=== PATIENT | female | born 1950 | race Caucasian/White ===

== ENCOUNTER 2023-05-26 23:12 | Emergency (ER) | payer MEDICARE, MEDICAID ==
[~2023-05-26] VITALS: Ht 162.6 cm; Wt 96.4 kg
[~2023-05-26 23:12] MED LIST: ACET-1008 PO; CARV25TA PO; DEXT15SY; DILT240C90 PO; DOCU-148 PO; FURO40TA4 PO; GUAI600T45 PO; HYDR-3973 PO; IPRA3AMP31 IH; LORA10TA7 PO; ONDA4TAB12 PO; SENN-263 PO; SPIR25TA5 PO; SULF1TAB45 PO; VENL37.55 PO; WARF3TAB56 PO
[2023-05-26 23:47] LABS: BASOPHILS # (AUTO) 0.1 X10'3 (0-0.2); EOSINOPHILS # (AUTO) 0.4 X10'3 (0-0.9); EOSINOPHILS % (AUTO) 7.2 % (0-6); HEMOGLOBIN 10.4 g/dl (12.0-16.0); LYMPHOCYTES # (AUTO) 0.8 X10'3 (1.1-4.8); LYMPHOCYTES % (AUTO) 14.3 % (21-51); MEAN CORPUSCULAR HEMOGLOBIN 28.9 PG (27.0-31.0); MEAN CORPUSCULAR HGB CONC 31.5 g/dL (33.0-36.5); MEAN CORPUSCULAR VOLUME 91.7 FL (78-98); MEAN PLATELET VOLUME 7.8 FL (7.4-10.4); MONOCYTES # (AUTO) 0.7 X10'3 (0-0.9); MONOCYTES % (AUTO) 12.1 % (2-12); NEUTROPHILS # (AUTO) 3.9 X10'3 (1.8-7.7); NEUTROPHILS % (AUTO) 65.4 % (42-75); PLATELET COUNT 135 X10'3 (140-440); WHITE BLOOD COUNT 5.9 X10'3 (4.5-11.0)
[2023-05-26 23:55] LABS: D-DIMER 1.88 MG/L FEU (0-0.50)
[2023-05-26 23:58] LABS: ALANINE AMINOTRANSFERASE 14 U/L (12-78); ALBUMIN/GLOBULIN RATIO 0.9 (1.1-1.5); ALKALINE PHOSPHATASE 69 IU/L (46-116); ANION GAP 5 (8-16); ASPARTATE AMINO TRANSFERASE 10 U/L (10-37); BILIRUBIN,TOTAL 0.5 MG/DL (0.1-1.0); BLOOD UREA NITROGEN 40 MG/DL (7-18); BUN/CREATININE RATIO 24.7 (10.0-20.0); CALCIUM 8.9 MG/DL (8.5-10.1); CHLORIDE 102 MMOL/L (99-107); CREATININE 1.62 MG/DL (0.40-0.90); GLUCOSE 92 MG/DL (70-104); POTASSIUM 4.2 MMOL/L (3.5-5.1); SODIUM 139 MMOL/L (135-145); TOTAL CARBON DIOXIDE 31.7 MMOL/L (24-32); TOTAL PROTEIN 6.5 G/DL (6.4-8.2); eCRCL 26 ML/MIN; eGFR 31 ML/MIN
[2023-05-27 00:06] LABS: ANISOCYTOSIS 1+; PLATELET ESTIMATE NORMAL
[2023-05-27 00:07] LABS: ELLIPTOCYTES FEW; PRO BRAIN NATRIURETIC PEPTIDE 1066 PG/ML (0-125); SCHISTOCYTES FEW; TEAR DROP CELLS FEW
[2023-05-27] MEDS ORDERED: benzonatate 100mg capsule PO ONE (00:25)
[2023-05-27] MEDS ORDERED: triamcinolone acet 0.1% cream 15gm TP ONE (00:25)
[2023-05-27] MEDS ORDERED: acetaminophen 325mg tablet PO ONE (00:25)
[2023-05-27] MEDS ORDERED: normal saline 1000ML IV soln IVB ONE (00:30)
[2023-05-27 01:04] LABS: BILIRUBIN,URINE NEGATIVE (Neg); CLARITY,URINE SLIGHTLY CLOUDY (Clear); COLOR,URINE YELLOW (Yellow); GLUCOSE, URINE NEGATIVE (Neg); KETONES,URINE NEGATIVE (Neg); LEUKOCYTE ESTERASE ,URINE SMALL (Neg); NITRITES, URINE NEGATIVE (Neg); OCCULT BLOOD,URINE NEGATIVE (Neg); PROTEIN,URINE NEGATIVE (Neg); UROBILINOGEN,URINE 0.2 E.U/dL (0.2-1.0)
[2023-05-27 01:10] LABS: UA COLLECTION TYPE STRAIGHT CATH
[2023-05-27 01:11] LABS: SQUAMOUS EPITHELIAL CELL,UR FEW /LPF (FEW)
[2023-05-27 01:12] LABS: BACTERIA,URINE 4+ /HPF (Neg); WBC CLUMPS,URINE MODERATE /HPF (NEGATIVE); WBC,URINE 50-100 /HPF (0-4)
[2023-05-27] MEDS ORDERED: CEPH250T PO (01:57)
[2023-05-27] MEDS ORDERED: CefTRIAXone/D5W-Rocephin 1gm 50 ML IV ONE (02:00)
[2023-05-27] MEDS ORDERED: traMADol 50MG tablet PO ONE (02:30)
[2023-05-27 03:32] VITALS: BP 114/59; PULSE 96; RESP 18; TEMP 98; O2SAT 96
== END 2023-05-27 03:15 | disposition home or self-care (01) ==
LOC: ER 23:12
DX: N39.0 Urinary tract infection, site not specified (principal); I11.0 Hypertensive heart disease with heart failure; J44.9 Chronic obstructive pulmonary disease, unspecified; Z88.8 Allergy status to other drugs, medicaments and biological substances; Z79.899 Other long term (current) drug therapy
CPT/HCPCS: 36415; 71045; 80053; 81001; 83880; 84145; 84484; 85008; 85025; 85379; 87077; 87088; 87186; 93005; 96374; 99285; J0696; J7030; A4353

== ENCOUNTER 2023-07-19 10:56 | Inpatient (IN) | payer MEDICARE, MEDICAID ==
[~2023-07-19] VITALS: Ht 162.6 cm; Wt 137.3 kg
[~2023-07-19 10:56] MED LIST changes: -VENL37.55 PO; +VENL37.58 PO
[2023-07-19] MEDS ORDERED: pantoprazole 40mg IV 80 MG in normal saline 100ml IV soln 100 ML IV ONE (11:15)
[2023-07-19 11:37] LABS: BASOPHILS % (AUTO) 0.3 % (0-1); EOSINOPHILS # (AUTO) 0.2 X10'3 (0-0.9); EOSINOPHILS % (AUTO) 2.2 % (0-6); HEMATOCRIT 30.4 % (35.0-45.0); HEMOGLOBIN 9.4 g/dl (12.0-16.0); LYMPHOCYTES # (AUTO) 0.5 X10'3 (1.1-4.8); LYMPHOCYTES % (AUTO) 6.1 % (21-51); MEAN CORPUSCULAR HEMOGLOBIN 28.2 PG (27.0-31.0); MEAN CORPUSCULAR HGB CONC 30.9 g/dL (33.0-36.5); MEAN CORPUSCULAR VOLUME 91.5 FL (78-98); MEAN PLATELET VOLUME 7.4 FL (7.4-10.4); MONOCYTES % (AUTO) 13.3 % (2-12); NEUTROPHILS % (AUTO) 78.1 % (42-75); PLATELET COUNT 177 X10'3 (140-440); RED BLOOD COUNT 3.33 X10'6 (4.20-5.60); RED CELL DISTRIBUTION WIDTH 16.3 % (11.5-14.5); WHITE BLOOD COUNT 7.6 X10'3 (4.5-11.0)
[2023-07-19 11:50] LABS: APTT 36 SECONDS (22-32); INR 1.3 INR; PROTHROMBIN TIME 13.4 SECONDS (9.0-12.0)
[2023-07-19 11:56] LABS: ALBUMIN 2.9 G/DL (3.4-5.0); ANION GAP 4 (8-16); BLOOD UREA NITROGEN 55 MG/DL (7-18); BUN/CREATININE RATIO 28.5 (10.0-20.0); CALCIUM 9.5 MG/DL (8.5-10.1); CHLORIDE 103 MMOL/L (99-107); CREATININE 1.93 MG/DL (0.40-0.90); GLUCOSE 106 MG/DL (70-104); LIPASE 10 U/L (16-77); MAGNESIUM 2.8 MG/DL (1.5-2.4); SODIUM 141 MMOL/L (135-145); TOTAL CARBON DIOXIDE 34.5 MMOL/L (24-32); eCRCL 22 ML/MIN; eGFR 25 ML/MIN
[2023-07-19] MEDS: pantoprazole 40 MG vial IV ONE (11:58)
[2023-07-19 12:02] LABS: POTASSIUM 6.1 MMOL/L (3.5-5.1)
[2023-07-19] MEDS ORDERED: ondansetron/PF 4mg/2ml inj IV PRN (13:55)
[2023-07-19] MEDS ORDERED: potassium Cl 40MEQ/1/2NS 520ml 520 ML IV PRN (13:55)
[2023-07-19] MEDS ORDERED: magnesium 2GM in 50ml NS 50 ML IV PRN (13:55)
[2023-07-19] MEDS ORDERED: potassium Cl 20 mEq SR tablet PO PRN ×2 (13:55)
[2023-07-19] MEDS ORDERED: magnesium 4gm in 100ml NS 100 ML IV PRN (13:55)
[2023-07-19] MEDS ORDERED: mag hydrox/Alum hydrox/simeth 30ml oral suspension PO PRN (13:55)
[2023-07-19 13:58] LABS: OCCULT BLOOD STOOL POSITIVE (Neg)
[2023-07-19] MEDS: SODIUM ZIRCONIUM CYCLOSILICATE 10 GM POWD.PACK PO SCH (14:06)
[2023-07-19] MEDS: normal saline 1000ml 1,000 ML IV SCH (14:33)
[2023-07-19 14:36] LABS: BILIRUBIN,URINE NEGATIVE (Neg); CLARITY,URINE CLOUDY (Clear); COLOR,URINE YELLOW (Yellow); GLUCOSE, URINE NEGATIVE (Neg); KETONES,URINE NEGATIVE (Neg); LEUKOCYTE ESTERASE ,URINE MODERATE (Neg); NITRITES, URINE NEGATIVE (Neg); OCCULT BLOOD,URINE LARGE (Neg); PROTEIN,URINE NEGATIVE (Neg); UROBILINOGEN,URINE 0.2 E.U/dL (0.2-1.0)
[2023-07-19 14:44] LABS: UA COLLECTION TYPE NON-SPECIFIED
[2023-07-19 14:45] LABS: SQUAMOUS EPITHELIAL CELL,UR FEW /LPF (FEW)
[2023-07-19 14:47] LABS: BACTERIA,URINE FEW /HPF (Neg); RBC,URINE 0-2 /HPF (0-2)
[2023-07-19] MEDS ORDERED: VENL75TA4 PO (15:29)
[2023-07-19] MEDS: pantoprazole 40MG/NS 100ML BAG 100 ML IV SCH (16:00)
[2023-07-19] MEDS: HYDROcodone/acetaminophen 10/325mg tab PO PRN (16:21)
[2023-07-19 17:00] VITALS: BP 110/46; PULSE 112; RESP 17; TEMP 98.2; O2SAT 94
[2023-07-19 17:04] LABS: HEMATOCRIT 29.6 % (35.0-45.0); HEMOGLOBIN 9.2 g/dl (12.0-16.0); MEAN CORPUSCULAR HEMOGLOBIN 28.5 PG (27.0-31.0); MEAN CORPUSCULAR VOLUME 91.9 FL (78-98); MEAN PLATELET VOLUME 7.4 FL (7.4-10.4); PLATELET COUNT 168 X10'3 (140-440); RED BLOOD COUNT 3.22 X10'6 (4.20-5.60); RED CELL DISTRIBUTION WIDTH 16.5 % (11.5-14.5); WHITE BLOOD COUNT 7.2 X10'3 (4.5-11.0)
[2023-07-19 17:08] LABS: ALBUMIN 2.8 G/DL (3.4-5.0); ANION GAP 2 (8-16); BLOOD UREA NITROGEN 52 MG/DL (7-18); BUN/CREATININE RATIO 26.5 (10.0-20.0); CALCIUM 9.3 MG/DL (8.5-10.1); CHLORIDE 105 MMOL/L (99-107); CREATININE 1.96 MG/DL (0.40-0.90); GLUCOSE 98 MG/DL (70-104); SODIUM 141 MMOL/L (135-145); TOTAL CARBON DIOXIDE 34.1 MMOL/L (24-32); eCRCL 22 ML/MIN; eGFR 25 ML/MIN
[2023-07-19 17:14] LABS: POTASSIUM 6.2 MMOL/L (3.5-5.1)
[2023-07-19 18:00] VITALS: BP 116/67; PULSE 122; RESP 22; TEMP 97.6; O2SAT 94
[2023-07-19] MEDS: albuterol 2.5 MG/3 ML nebule CONTNEB PRN (19:21)
[2023-07-19] MEDS: dextrose 50%-water 50ml dispensing syringe IV ONE (19:24)
[2023-07-19] MEDS: calcium chloride 100 MG/1 ML inj IV ONE (19:25)
[2023-07-19 19:26] VITALS: PULSE 82; RESP 18; O2SAT 94
[2023-07-19] MEDS: insulin regular, human 10 units/0.1 ml syringe IV ONE (19:30)
[2023-07-19 20:00] VITALS: RESP 22; O2SAT 92
[2023-07-19] MEDS ORDERED: docusate sod 100mg capsule PO SCH (20:00)
[2023-07-19] MEDS: K and/or MAG REPLACEMENT MC SCH (20:00)
[2023-07-19 20:06] VITALS: PULSE 82; RESP 24
[2023-07-19] MEDS ORDERED: ipratropium/albuterol 3ml nebule IH PRN (20:40)
[2023-07-19] MEDS ORDERED: HYDROcodone/acetaminophen 10/325mg tab PO PRN (20:40)
[2023-07-19 22:00] VITALS: BP 114/62; PULSE 110; RESP 18; TEMP 97.9; O2SAT 97
[2023-07-19] MEDS: morphine 2 MG/ML inj. syringe IV PRN (22:41)
[2023-07-19] MEDS: diphenhydrAMINE 50 mg/ml inj IV PRN (22:43)
[2023-07-20] VITALS (14 sets, daily range): BP systolic 104–122; BP diastolic 51–74; PULSE 75–96; RESP 16–20; TEMP 96.5–98.4; O2SAT 90–99
[2023-07-20 07:11] LABS: BASOPHILS % (AUTO) 0.5 % (0-1); EOSINOPHILS # (AUTO) 0.2 X10'3 (0-0.9); EOSINOPHILS % (AUTO) 4.2 % (0-6); HEMATOCRIT 29.1 % (35.0-45.0); HEMOGLOBIN 8.9 g/dl (12.0-16.0); LYMPHOCYTES # (AUTO) 0.6 X10'3 (1.1-4.8); LYMPHOCYTES % (AUTO) 10.3 % (21-51); MEAN CORPUSCULAR HEMOGLOBIN 28.1 PG (27.0-31.0); MEAN CORPUSCULAR HGB CONC 30.8 g/dL (33.0-36.5); MEAN CORPUSCULAR VOLUME 91.4 FL (78-98); MEAN PLATELET VOLUME 7.3 FL (7.4-10.4); NEUTROPHILS # (AUTO) 3.7 X10'3 (1.8-7.7); PLATELET COUNT 164 X10'3 (140-440); RED BLOOD COUNT 3.18 X10'6 (4.20-5.60); RED CELL DISTRIBUTION WIDTH 16.9 % (11.5-14.5); WHITE BLOOD COUNT 5.5 X10'3 (4.5-11.0)
[2023-07-20 07:51] LABS: ALBUMIN 2.6 G/DL (3.4-5.0); ALBUMIN/GLOBULIN RATIO 0.8 (1.1-1.5); ALKALINE PHOSPHATASE 58 IU/L (46-116); ANION GAP 4 (8-16); ASPARTATE AMINO TRANSFERASE 11 U/L (10-37); BILIRUBIN,TOTAL 0.6 MG/DL (0.1-1.0); BLOOD UREA NITROGEN 49 MG/DL (7-18); BUN/CREATININE RATIO 26.2 (10.0-20.0); CALCIUM 9.3 MG/DL (8.5-10.1); CHLORIDE 105 MMOL/L (99-107); CREATININE 1.87 MG/DL (0.40-0.90); GLUCOSE 84 MG/DL (70-104); MAGNESIUM 2.5 MG/DL (1.5-2.4); PRO BRAIN NATRIURETIC PEPTIDE 2438 PG/ML (0-125); SODIUM 142 MMOL/L (135-145); TOTAL CARBON DIOXIDE 33.5 MMOL/L (24-32); eCRCL 23 ML/MIN; eGFR 26 ML/MIN
[2023-07-20 07:54] LABS: ALANINE AMINOTRANSFERASE 6 U/L (12-78)
[2023-07-20] MEDS: carVEDilol 12.5mg tablet PO SCH (08:00)
[2023-07-20] MEDS: loratadine 10mg tablet PO SCH (08:00)
[2023-07-20] MEDS: furosemide 40mg/4ml inj IV SCH (08:00)
[2023-07-20] MEDS: docusate sod 100mg capsule PO SCH (08:00)
[2023-07-20 08:44] LABS: TOTAL CELLS COUNTED 100
[2023-07-20 08:45] LABS: ANISOCYTOSIS 1+; LARGE PLATELETS FEW; PLATELET ESTIMATE NORMAL
[2023-07-20] MEDS: sennosides 8.6mg tablet PO SCH (09:13)
[2023-07-20] MEDS: diltiazem CD 120mg capsule (once-daily) PO SCH (09:15)
[2023-07-20] MEDS: metoprolol tartrate 1mg/ml inj IV ONE (09:40)
[2023-07-20] MEDS: LORazepam 2 mg/ml vial IV ONE (10:20)
[2023-07-20] MEDS: digoxin 250mcg/ml 2ml ampule IV ONE (11:53)
[2023-07-20] MEDS ORDERED: LIDOcaine Viscous 15ml cup ONE (12:48)
[2023-07-20] MEDS ORDERED: fentaNYL/PF 50MCG/1 ML 2ML syringe ONE (13:58)
[2023-07-20] MEDS ORDERED: MIDAZolam 1 MG/ML 5ML VIAL ONE (13:58)
[2023-07-20] MEDS: SODIUM ZIRCONIUM CYCLOSILICATE 10 GM POWD.PACK PO SCH (16:55)
[2023-07-20] MEDS ORDERED: digoxin 250mcg/ml 2ml ampule IV ONE (19:05)
[2023-07-20] MEDS: pantoprazole 40mg Tablet.DR PO SCH (20:04)
[2023-07-20 22:09] LABS: ALBUMIN 2.6 G/DL (3.4-5.0); ANION GAP 2 (8-16); BLOOD UREA NITROGEN 50 MG/DL (7-18); BUN/CREATININE RATIO 24.5 (10.0-20.0); CALCIUM 8.7 MG/DL (8.5-10.1); CHLORIDE 104 MMOL/L (99-107); CREATININE 2.04 MG/DL (0.40-0.90); GLUCOSE 111 MG/DL (70-104); POTASSIUM 5.1 MMOL/L (3.5-5.1); SODIUM 144 MMOL/L (135-145); eCRCL 21 ML/MIN; eGFR 24 ML/MIN
[2023-07-21] VITALS (15 sets, daily range): BP systolic 95–154; BP diastolic 45–83; PULSE 71–99; RESP 13–24; TEMP 96.7–98.6; O2SAT 92–99
[2023-07-21 08:09] LABS: BASOPHILS % (AUTO) 0.7 % (0-1); EOSINOPHILS # (AUTO) 0.3 X10'3 (0-0.9); EOSINOPHILS % (AUTO) 5.4 % (0-6); HEMOGLOBIN 8.9 g/dl (12.0-16.0); LYMPHOCYTES # (AUTO) 0.5 X10'3 (1.1-4.8); LYMPHOCYTES % (AUTO) 10.1 % (21-51); MEAN CORPUSCULAR HEMOGLOBIN 29.2 PG (27.0-31.0); MEAN CORPUSCULAR HGB CONC 31.8 g/dL (33.0-36.5); MEAN CORPUSCULAR VOLUME 91.9 FL (78-98); MEAN PLATELET VOLUME 7.4 FL (7.4-10.4); MONOCYTES # (AUTO) 0.9 X10'3 (0-0.9); MONOCYTES % (AUTO) 18.1 % (2-12); NEUTROPHILS # (AUTO) 3.4 X10'3 (1.8-7.7); NEUTROPHILS % (AUTO) 65.7 % (42-75); PLATELET COUNT 161 X10'3 (140-440); RED BLOOD COUNT 3.05 X10'6 (4.20-5.60); RED CELL DISTRIBUTION WIDTH 16.7 % (11.5-14.5); WHITE BLOOD COUNT 5.1 X10'3 (4.5-11.0)
[2023-07-21 08:20] LABS: ALBUMIN 2.6 G/DL (3.4-5.0); ALBUMIN/GLOBULIN RATIO 0.7 (1.1-1.5); ALKALINE PHOSPHATASE 64 IU/L (46-116); ANION GAP 2 (8-16); ASPARTATE AMINO TRANSFERASE 18 U/L (10-37); BILIRUBIN,TOTAL 0.5 MG/DL (0.1-1.0); BLOOD UREA NITROGEN 48 MG/DL (7-18); BUN/CREATININE RATIO 24.2 (10.0-20.0); CALCIUM 8.9 MG/DL (8.5-10.1); CHLORIDE 105 MMOL/L (99-107); CREATININE 1.98 MG/DL (0.40-0.90); GLUCOSE 89 MG/DL (70-104); MAGNESIUM 2.5 MG/DL (1.5-2.4); POTASSIUM 5.1 MMOL/L (3.5-5.1); SODIUM 143 MMOL/L (135-145); TOTAL CARBON DIOXIDE 36.1 MMOL/L (24-32); TOTAL PROTEIN 6.1 G/DL (6.4-8.2); eCRCL 22 ML/MIN; eGFR 25 ML/MIN
[2023-07-21 08:29] LABS: ALANINE AMINOTRANSFERASE < 6 U/L (12-78)
[2023-07-21] MEDS: CefTRIAXone/D5W-Rocephin 1gm 50 ML IV ONE (13:38)
[2023-07-21 17:13] LABS: ABG BASE EXCESS 8.6 mmol/L (-2.0-2.0); ABG HCO3 36.7 mmol/L (22.0-26.0); ABG OXYGEN SATURATION 94.8 % (94-97); ABG PCO2 (T) 71.2 mmHg (32.0-45.0); ABG PH (T) 7.328 (7.350-7.450); ABG PO2 (T) 73.4 mmHg (75.0-100.0); ALLEN'S TEST POSITIVE; FCOHb 0.6 % (0.0-3.9); FHHb 5.2 % (0.0-5.0); FMetHb 0.3 % (0.0-1.5); FO2Hb 93.9 % (94-97); MODE NASAL CANNULA; PATIENT TEMPERATURE 36.4; TOTAL HEMOGLOBIN 10.4 G/dl (12.0-16.0)
[2023-07-21 18:15] LABS: TOTAL PROTEIN,URINE RANDOM 6.3 MG/DL
[2023-07-21] MEDS: LORazepam 0.5 MG tablet PO PRN (22:55)
[2023-07-21] MEDS: diatr meglu/diatrizoate 30ml oral sol.-(3 dose) bottle PO SCH (22:58)
[2023-07-22] VITALS (11 sets, daily range): BP systolic 94–124; BP diastolic 50–73; PULSE 73–98; RESP 16–24; TEMP 97.7–97.9; O2SAT 91–98
[2023-07-22] MEDS ORDERED: diatrozoate meglu/diatrozoate sod (37% iodine) 120ML oral solution PO ONE ×2 (07:00→10:00)
[2023-07-22] MEDS: CefTRIAXone/D5W-Rocephin 1gm 50 ML IV SCH (07:31)
[2023-07-22 07:52] LABS: BASOPHILS % (AUTO) 0.6 % (0-1); EOSINOPHILS # (AUTO) 0.3 X10'3 (0-0.9); EOSINOPHILS % (AUTO) 5.7 % (0-6); HEMATOCRIT 28.8 % (35.0-45.0); HEMOGLOBIN 8.8 g/dl (12.0-16.0); LYMPHOCYTES # (AUTO) 0.6 X10'3 (1.1-4.8); LYMPHOCYTES % (AUTO) 10.3 % (21-51); MEAN CORPUSCULAR HEMOGLOBIN 28.1 PG (27.0-31.0); MEAN CORPUSCULAR HGB CONC 30.7 g/dL (33.0-36.5); MEAN CORPUSCULAR VOLUME 91.5 FL (78-98); MEAN PLATELET VOLUME 7.2 FL (7.4-10.4); MONOCYTES # (AUTO) 1.1 X10'3 (0-0.9); MONOCYTES % (AUTO) 19.7 % (2-12); NEUTROPHILS # (AUTO) 3.5 X10'3 (1.8-7.7); NEUTROPHILS % (AUTO) 63.7 % (42-75); PLATELET COUNT 167 X10'3 (140-440); RED BLOOD COUNT 3.14 X10'6 (4.20-5.60); RED CELL DISTRIBUTION WIDTH 16.4 % (11.5-14.5); WHITE BLOOD COUNT 5.5 X10'3 (4.5-11.0)
[2023-07-22] MEDS: furosemide 20 MG/2 ML vial IV SCH (08:00)
[2023-07-22 08:23] LABS: ALANINE AMINOTRANSFERASE 6 U/L (12-78); ALBUMIN 2.7 G/DL (3.4-5.0); ALBUMIN/GLOBULIN RATIO 0.7 (1.1-1.5); ALKALINE PHOSPHATASE 64 IU/L (46-116); ANION GAP 2 (8-16); ASPARTATE AMINO TRANSFERASE 7 U/L (10-37); BILIRUBIN,TOTAL 0.5 MG/DL (0.1-1.0); BLOOD UREA NITROGEN 48 MG/DL (7-18); BUN/CREATININE RATIO 25.4 (10.0-20.0); CALCIUM 8.7 MG/DL (8.5-10.1); CHLORIDE 102 MMOL/L (99-107); CREATININE 1.89 MG/DL (0.40-0.90); GLUCOSE 99 MG/DL (70-104); MAGNESIUM 2.5 MG/DL (1.5-2.4); POTASSIUM 4.4 MMOL/L (3.5-5.1); SODIUM 140 MMOL/L (135-145); TOTAL PROTEIN 6.4 G/DL (6.4-8.2); eCRCL 23 ML/MIN; eGFR 26 ML/MIN
[2023-07-22] MEDS: furosemide 40mg/4ml inj IV SCH (16:00)
[2023-07-22 16:51] LABS: ABG HCO3 39.7 mmol/L (22.0-26.0); ABG OXYGEN SATURATION 93.9 % (94-97); ABG PH (T) 7.321 (7.350-7.450); ABG PO2 (T) 67.1 mmHg (75.0-100.0); ALLEN'S TEST POSITIVE; FCOHb 0.7 % (0.0-3.9); FMetHb 0.3 % (0.0-1.5); MODE MASK - BIPAP; PATIENT TEMPERATURE 36.3; TOTAL HEMOGLOBIN 10.2 G/dl (12.0-16.0)
[2023-07-22] MEDS: methylPREDNISolone sod succ 125mg/2ml vial IV ONE (18:30)
[2023-07-22] MEDS: cefepime 1GM/NS ADD-VANTAGE 100 ML IV SCH (20:00)
[2023-07-22] MEDS: metolazone 2.5mg tablet PO SCH (20:00)
[2023-07-23] VITALS (10 sets, daily range): BP systolic 92–146; BP diastolic 41–71; PULSE 94–119; RESP 16–24; TEMP 96.7–99; O2SAT 92–97
[2023-07-23] MEDS: methylPREDNISolone sod succ/PF 40mg inj. IV SCH (00:10)
[2023-07-23 07:18] LABS: BASOPHILS % (AUTO) 0.1 % (0-1); EOSINOPHILS % (AUTO) 0 % (0-6); HEMOGLOBIN 9.2 g/dl (12.0-16.0); LYMPHOCYTES # (AUTO) 0.3 X10'3 (1.1-4.8); LYMPHOCYTES % (AUTO) 11.3 % (21-51); MEAN CORPUSCULAR HEMOGLOBIN 28.3 PG (27.0-31.0); MEAN CORPUSCULAR HGB CONC 31.7 g/dL (33.0-36.5); MEAN CORPUSCULAR VOLUME 89.2 FL (78-98); MEAN PLATELET VOLUME 7.2 FL (7.4-10.4); MONOCYTES # (AUTO) 0.1 X10'3 (0-0.9); MONOCYTES % (AUTO) 2.4 % (2-12); NEUTROPHILS # (AUTO) 2.5 X10'3 (1.8-7.7); NEUTROPHILS % (AUTO) 86.2 % (42-75); PLATELET COUNT 126 X10'3 (140-440); RED BLOOD COUNT 3.25 X10'6 (4.20-5.60); WHITE BLOOD COUNT 2.9 X10'3 (4.5-11.0)
[2023-07-23 07:41] LABS: ALANINE AMINOTRANSFERASE 6 U/L (12-78); ALBUMIN 2.4 G/DL (3.4-5.0); ALBUMIN/GLOBULIN RATIO 0.7 (1.1-1.5); ALKALINE PHOSPHATASE 55 IU/L (46-116); ANION GAP 7 (8-16); ASPARTATE AMINO TRANSFERASE 10 U/L (10-37); BILIRUBIN,TOTAL 0.7 MG/DL (0.1-1.0); BLOOD UREA NITROGEN 45 MG/DL (7-18); BUN/CREATININE RATIO 26.8 (10.0-20.0); CALCIUM 8.4 MG/DL (8.5-10.1); CHLORIDE 103 MMOL/L (99-107); CREATININE 1.68 MG/DL (0.40-0.90); GLUCOSE 122 MG/DL (70-104); MAGNESIUM 2.1 MG/DL (1.5-2.4); POTASSIUM 3.9 MMOL/L (3.5-5.1); SODIUM 145 MMOL/L (135-145); TOTAL CARBON DIOXIDE 35.2 MMOL/L (24-32); TOTAL PROTEIN 5.7 G/DL (6.4-8.2); eCRCL 25 ML/MIN; eGFR 30 ML/MIN
[2023-07-23 08:47] LABS: HYPOCHROMASIA 2+; PLATELET ESTIMATE DECREASED; TOTAL CELLS COUNTED 100
[2023-07-23 08:48] LABS: STOMATOCYTES 1+
[2023-07-23] MEDS: oxyCODONE/APAP 10/325mg tablet PO PRN (15:47)
[2023-07-23] MEDS: lactulose 20gm/30ml cup PO SCH (15:48)
[2023-07-23] MEDS: furosemide 20 MG/2 ML vial IV SCH (16:24)
[2023-07-24] VITALS (13 sets, daily range): BP systolic 118–153; BP diastolic 73–88; PULSE 75–103; RESP 14–22; TEMP 96.4–98; O2SAT 92–98
[2023-07-24] MEDS: acetaminophen 325mg tablet PO PRN (03:27)
[2023-07-24 06:57] LABS: BASOPHILS % (AUTO) 0.1 % (0-1); EOSINOPHILS % (AUTO) 0 % (0-6); HEMATOCRIT 28.5 % (35.0-45.0); HEMOGLOBIN 8.9 g/dl (12.0-16.0); LYMPHOCYTES # (AUTO) 0.4 X10'3 (1.1-4.8); LYMPHOCYTES % (AUTO) 6.3 % (21-51); MEAN CORPUSCULAR HEMOGLOBIN 27.7 PG (27.0-31.0); MEAN CORPUSCULAR HGB CONC 31.3 g/dL (33.0-36.5); MEAN CORPUSCULAR VOLUME 88.6 FL (78-98); MEAN PLATELET VOLUME 7.5 FL (7.4-10.4); MONOCYTES # (AUTO) 0.5 X10'3 (0-0.9); MONOCYTES % (AUTO) 8.5 % (2-12); NEUTROPHILS # (AUTO) 4.9 X10'3 (1.8-7.7); NEUTROPHILS % (AUTO) 85.1 % (42-75); PLATELET COUNT 128 X10'3 (140-440); RED BLOOD COUNT 3.22 X10'6 (4.20-5.60); RED CELL DISTRIBUTION WIDTH 16.1 % (11.5-14.5); WHITE BLOOD COUNT 5.8 X10'3 (4.5-11.0)
[2023-07-24 07:12] LABS: ALANINE AMINOTRANSFERASE 9 U/L (12-78); ALBUMIN 2.5 G/DL (3.4-5.0); ALBUMIN/GLOBULIN RATIO 0.7 (1.1-1.5); ALKALINE PHOSPHATASE 53 IU/L (46-116); ANION GAP 5 (8-16); ASPARTATE AMINO TRANSFERASE 8 U/L (10-37); BILIRUBIN,TOTAL 0.5 MG/DL (0.1-1.0); BLOOD UREA NITROGEN 52 MG/DL (7-18); BUN/CREATININE RATIO 31.7 (10.0-20.0); CALCIUM 8.1 MG/DL (8.5-10.1); CHLORIDE 102 MMOL/L (99-107); CREATININE 1.64 MG/DL (0.40-0.90); GLUCOSE 161 MG/DL (70-104); MAGNESIUM 2.2 MG/DL (1.5-2.4); SODIUM 144 MMOL/L (135-145); TOTAL CARBON DIOXIDE 37.5 MMOL/L (24-32); eCRCL 26 ML/MIN; eGFR 31 ML/MIN
[2023-07-24] MEDS ORDERED: magnesium 2GM in 50ml NS 50 ML IV PRN (07:50)
[2023-07-24] MEDS ORDERED: magnesium 4gm in 100ml NS 100 ML IV PRN (07:50)
[2023-07-24] MEDS: potassium Cl 20 mEq SR tablet PO PRN (09:30)
[2023-07-24] MEDS: K and/or MAG REPLACEMENT MC SCH (09:30)
[2023-07-24 09:51] LABS: ABG BASE EXCESS 11.7 mmol/L (-2.0-2.0); ABG HCO3 39.3 mmol/L (22.0-26.0); ABG OXYGEN SATURATION 94.5 % (94-97); ABG PCO2 (T) 69.6 mmHg (32.0-45.0); ABG PH (T) 7.368 (7.350-7.450); ABG PO2 (T) 71.8 mmHg (75.0-100.0); ALLEN'S TEST POSITIVE; FCOHb 0.5 % (0.0-3.9); FHHb 5.5 % (0.0-5.0); FLOW 3 L/min; FMetHb 0.3 % (0.0-1.5); FO2Hb 93.7 % (94-97); MODE NASAL CANNULA; PATIENT TEMPERATURE 36.4; TOTAL HEMOGLOBIN 10.3 G/dl (12.0-16.0)
[2023-07-24] MEDS: potassium Cl 40MEQ/1/2NS 520ml 520 ML IV PRN (16:26)
[2023-07-24] MEDS: furosemide 40mg/4ml inj IV SCH (16:26)
[2023-07-25] VITALS (7 sets, daily range): BP systolic 122–124; BP diastolic 79–80; PULSE 83–93; RESP 19–22; TEMP 97.6–97.8; O2SAT 95–98
[2023-07-25] MEDS: oxyCODONE/APAP 5-325mg tablet PO PRN (04:21)
[2023-07-25 06:47] LABS: BASOPHILS % (AUTO) 0.1 % (0-1); EOSINOPHILS % (AUTO) 0 % (0-6); HEMATOCRIT 29.4 % (35.0-45.0); HEMOGLOBIN 9.1 g/dl (12.0-16.0); LYMPHOCYTES # (AUTO) 0.3 X10'3 (1.1-4.8); LYMPHOCYTES % (AUTO) 5.4 % (21-51); MEAN CORPUSCULAR HEMOGLOBIN 27.4 PG (27.0-31.0); MEAN CORPUSCULAR HGB CONC 30.9 g/dL (33.0-36.5); MEAN CORPUSCULAR VOLUME 88.6 FL (78-98); MEAN PLATELET VOLUME 7.5 FL (7.4-10.4); MONOCYTES # (AUTO) 0.4 X10'3 (0-0.9); MONOCYTES % (AUTO) 6.1 % (2-12); NEUTROPHILS # (AUTO) 5.6 X10'3 (1.8-7.7); NEUTROPHILS % (AUTO) 88.4 % (42-75); PLATELET COUNT 119 X10'3 (140-440); RED BLOOD COUNT 3.32 X10'6 (4.20-5.60); RED CELL DISTRIBUTION WIDTH 16.3 % (11.5-14.5); WHITE BLOOD COUNT 6.4 X10'3 (4.5-11.0)
[2023-07-25 06:58] LABS: ALANINE AMINOTRANSFERASE 10 U/L (12-78); ALBUMIN 2.5 G/DL (3.4-5.0); ALBUMIN/GLOBULIN RATIO 0.7 (1.1-1.5); ALKALINE PHOSPHATASE 49 IU/L (46-116); ANION GAP 1 (8-16); ASPARTATE AMINO TRANSFERASE 10 U/L (10-37); BILIRUBIN,TOTAL 0.5 MG/DL (0.1-1.0); BLOOD UREA NITROGEN 52 MG/DL (7-18); BUN/CREATININE RATIO 35.4 (10.0-20.0); CALCIUM 8.2 MG/DL (8.5-10.1); CHLORIDE 100 MMOL/L (99-107); CREATININE 1.47 MG/DL (0.40-0.90); GLUCOSE 168 MG/DL (70-104); MAGNESIUM 2.1 MG/DL (1.5-2.4); POTASSIUM 3.4 MMOL/L (3.5-5.1); SODIUM 142 MMOL/L (135-145); TOTAL PROTEIN 5.9 G/DL (6.4-8.2); eCRCL 29 ML/MIN; eGFR 35 ML/MIN
[2023-07-25 07:05] LABS: TOTAL CARBON DIOXIDE 40.8 MMOL/L (24-32)
[2023-07-25] MEDS: cefepime inj. 0.5 GM in normal saline 100ml IV soln 105 ML IV SCH (10:06)
[2023-07-25] MEDS: potassium Cl 20 mEq SR tablet PO PRN (10:07)
[2023-07-25 11:59] LABS: ABG BASE EXCESS 12.3 mmol/L (-2.0-2.0); ABG HCO3 37.8 mmol/L (22.0-26.0); ABG OXYGEN SATURATION 98.9 % (94-97); ABG PCO2 (T) 54.4 mmHg (32.0-45.0); ABG PO2 (T) 124.1 mmHg (75.0-100.0); ALLEN'S TEST POSITIVE; FCOHb 0.4 % (0.0-3.9); FHHb 1.1 % (0.0-5.0); FMetHb 0.3 % (0.0-1.5); FO2Hb 98.2 % (94-97); MODE MASK - BIPAP; RESPIRATORY RATE 20 b/min; TIDAL VOLUME 580 mL; TOTAL HEMOGLOBIN 10.1 G/dl (12.0-16.0)
[2023-07-25] MEDS: acetaZOLAMIDE IV 500mg inj IV ONE (15:31)
== END 2023-07-25 17:00 | DRG 377 ==
LOC: ER 10:57 → ED HOLD 14:01 → EDBEDREQ 15:40 → PCU 3S 16:50
PROVIDERS: ADMIT Family Medicine; ATTEND Family Medicine
PROC: 0DB78ZX Excision of Stomach, Pylorus, Via Natural or Artificial Opening Endoscopic, Diagnostic (ICD-10-PCS; principal; 2023-07-20)
PROC: 5A09357 Assistance with Respiratory Ventilation, Less than 24 Consecutive Hours, Continuous Positive Airway Pressure (ICD-10-PCS; 2023-07-22)
PROC: 0W9G3ZZ Drainage of Peritoneal Cavity, Percutaneous Approach (ICD-10-PCS; 2023-07-22)
PROC: 5A09357 Assistance with Respiratory Ventilation, Less than 24 Consecutive Hours, Continuous Positive Airway Pressure (ICD-10-PCS; 2023-07-25)
DX: K29.71 Gastritis, unspecified, with bleeding (principal); I50.33 Acute on chronic diastolic (congestive) heart failure; N17.0 Acute kidney failure with tubular necrosis; D62 Acute posthemorrhagic anemia; I48.20 Chronic atrial fibrillation, unspecified; J96.12 Chronic respiratory failure with hypercapnia; E87.3 Alkalosis; N39.0 Urinary tract infection, site not specified; I13.0 Hypertensive heart and chronic kidney disease with heart failure and stage 1 through stage 4 chronic kidney disease, or unspecified chronic kidney disease; E87.4 Mixed disorder of acid-base balance; J96.11 Chronic respiratory failure with hypoxia; R18.8 Other ascites; Z68.43 Body mass index [BMI] 50.0-59.9, adult; K21.01 Gastro-esophageal reflux disease with esophagitis, with bleeding; G47.33 Obstructive sleep apnea (adult) (pediatric); E66.01 Morbid (severe) obesity due to excess calories; J44.9 Chronic obstructive pulmonary disease, unspecified; J84.10 Pulmonary fibrosis, unspecified; N18.9 Chronic kidney disease, unspecified; I27.20 Pulmonary hypertension, unspecified; E87.5 Hyperkalemia; E78.5 Hyperlipidemia, unspecified; Z79.01 Long term (current) use of anticoagulants; Z79.899 Other long term (current) drug therapy; Z86.711 Personal history of pulmonary embolism; Z82.49 Family history of ischemic heart disease and other diseases of the circulatory system; T81.89XA Other complications of procedures, not elsewhere classified, initial encounter; B96.5 Pseudomonas (aeruginosa) (mallei) (pseudomallei) as the cause of diseases classified elsewhere; Y92.238 Other place in hospital as the place of occurrence of the external cause
CPT/HCPCS: 36415; 36600; 43239; 49083; 71045; 71250; 74176; 76942; 80048; 80053; 81001; 82272; 82570; 82803; 82948; 83605; 83690; 83735; 83880; 84133; 84156; 84300; 84484; 84540; 85007; 85018; 85025; 85027; 85610; 85730; 86885; 86900; 86901; 86920; 87040; 87077; 87081; 87088; 87186; 88305; 92508; 92616; 93005; 94640; 94660; 94760; 97110; 97161; 99152; 99285; A4421; A4615; A4620; A6250; A6253; A6258; A6449; C9113; G0378; J0692; J0696; J1120; J1160; J1200; J1815; J1940; J2250; J2270; J2920; J2930; J3010; J3480; J3490; J7030; J7040; Q9963